=== PATIENT | male | born 1985 | race Caucasian/White ===

== ENCOUNTER 2020-02-10 10:28 | Emergency (ER) | payer OTHER ==
[~2020-02-10] VITALS: Ht 170.2 cm; Wt 71.3 kg
[2020-02-10] MEDS ORDERED: ONDANSETRON 4MG/2ML VIAL IV ONE (11:00)
[2020-02-10] MEDS ORDERED: MORPHINE 2 MG/ML 1ML VIAL (J2270) IV PRN (11:00)
[2020-02-10] MEDS ORDERED: NS 500 ML IV ONE (11:00)
[2020-02-10] MEDS ORDERED: ISOVUE-370 76% 100ML VIAL As Ordered ONE (11:04)
[2020-02-10 11:10] LABS: BASO % 0.4 % (0.0-1.0); EOS # 0.1 10^3/uL (0.0-0.5); EOS % 1.3 % (0.0-3.0); HEMATOCRIT 42.4 % (42.0-52.0); HEMOGLOBIN 14.7 g/dl (13.5-17.5); LYMPH # 1.6 10^3/uL (1.5-5.0); LYMPH % 15.8 % (24.0-44.0); MEAN CORPUSCULAR HEMOGLOBIN 30.5 pg (27.0-33.0); MEAN CORPUSCULAR HGB CONC 34.7 g/dl (32.0-36.5); MONO # 0.7 10^3/uL (0.0-0.8); NEUTROPHILS # 7.4 10^3/uL (1.5-8.5); NEUTROPHILS % 73.4 % (36.0-66.0); PLATELET COUNT, AUTOMATED 266 10^3/uL (150-450); RED BLOOD COUNT 4.82 10^6/uL (4.30-6.10); WHITE BLOOD COUNT 10.1 10^3/uL (4.0-10.0)
[2020-02-10 11:37] LABS: ALBUMIN 4.1 GM/DL (3.2-5.2); BILIRUBIN,DIRECT 0.1 MG/DL (0.0-0.2); BILIRUBIN,TOTAL 0.4 MG/DL (0.2-1.0); TOTAL PROTEIN 7.1 GM/DL (6.4-8.2)
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
[2020-02-10] MEDS ORDERED: KETOROLAC 30 MG/ML 1ML VIAL IV ONE (13:45)
[2020-02-10 14:32] VITALS: BP 133/63
[2020-02-10] MEDS ORDERED: KETO10TAB PO (14:36)
--- NOTE | 2020-02-11 07:25 | REP ---
Four views right wrist: 02/10/2020. Indication: Right wrist pain following injury. Findings: There is a comminuted minimally displaced fracture involving the radial metastasis as well as a displaced fracture through the ulnar process. No additional fractures are present. No lytic or blastic lesions are present. Impression: Distal radial and ulnar fractures. Electronically Signed by Dennys Aragon DO 02/10/2020 11:13 A
== END 2020-02-10 14:50 | disposition home or self-care (01) ==
LOC: M ED 10:28
DX: S52.611A Displaced fracture of right ulna styloid process, initial encounter for closed fracture (principal); S52.511A Displaced fracture of right radial styloid process, initial encounter for closed fracture; W11.XXXA Fall on and from ladder, initial encounter; Y92.9 Unspecified place or not applicable; Y93.9 Activity, unspecified; Y99.9 Unspecified external cause status
CPT/HCPCS: 70450; 72125; 73110; 74177; 80047; 80076; 81001; 82150; 83690; 85025; 86850; 86900; 86901; 93041; 94760; 96361; 96374; 96375; 99284; J1885; J2270; J2405; Q9967